=== PATIENT | female | born 1960 | race Caucasian/White ===

== ENCOUNTER → 2024-01-11 10:28 | Outpatient (REF) | payer BC, SELFPAY ==
[2024-01-11 10:45] VITALS: BP 130/67; BP_SYST 76
== END ==
LOC: RADI 10:28
PROVIDERS: ATTENDING PHYSICIAN Internal Medicine Rheumatology; FAMILY PHYSICIAN Internal Medicine
DX: M16.12 Unilateral primary osteoarthritis, left hip (principal); M25.552 Pain in left hip
CPT/HCPCS: 20610; 77002